=== PATIENT | female | born 1990 | race Hispanic/Latino ===

== ENCOUNTER 2017-12-18 15:05 | Emergency (ER) | payer BC ==
[2017-12-18 15:13] VITALS: RESP 18; TEMP 97.7; O2SAT 99
[2017-12-18] MEDS ORDERED: Sodium Chloride 0.9% 1,000 ML IV STA (15:41)
[2017-12-18 16:07] LABS: BASO % 0.6 % (0.0-2.0); EOS % 0.4 % (0.0-4.0); HEMOGLOBIN 10.7 g/dL (12.0-16.0); LYMPH # 1.4 K/uL (1.0-4.3); LYMPH % 27.9 % (20.0-40.0); MEAN CELL VOLUME 78.1 fl (81.0-99.0); MEAN CORPUSCULAR HEMOGLOBIN 24.4 pg (27.0-31.0); MEAN CORPUSCULAR HGB CONC 31.3 g/dL (33.0-37.0); MEAN PLATELET VOLUME 9.8 fl (7.2-11.7); MONO # 0.3 K/uL (0.0-0.8); MONO % 6.2 % (0.0-10.0); NEUT # 3.3 K/uL (1.8-7.0); NEUT % 64.9 % (50.0-75.0); NRBC % 0.2 % (0.0-0.0); RBC 4.38 Mil/uL (3.80-5.20); RED CELL DISTRIBUTION WIDTH 17.9 % (11.5-14.5); WHITE BLOOD COUNT 5.1 K/uL (4.8-10.8)
--- NOTE | 2017-12-18 16:07 | ED PDOC ---
HPI: General Adult Time Seen by Provider: 12/18/17 15:29 Chief Complaint (Nursing): Female Genitourinary History Per: Patient Additional Complaint(s): Pt. states yesterday morning she had intercourse with a partner she's had intercourse with her before and approximately 4 hours later she developed heavy vaginal bleeding. States she's been using 1 pad or tampon (fully soaked) every hour since yesterday and that bleeding has decreased today but is still present. Also states that she did take Plan B on Friday. LMP 12/04/2017. Currently without any pain. Furthermore pt. does have a hx of anemia for which she use to take iron but had no previous transfusions. Denies pelvic pain, abdominal pain, dysuria, hematuria, vaginal pain, dysuria, hematuria, fever. Past Medical History Reviewed: Historical Data, Nursing Documentation, Vital Signs Vital Signs: Last Vital Signs Temp 97.7 F 12/18/17 15:10 Pulse 103 H 12/18/17 15:10 Resp 18 12/18/17 15:10 BP 125/82 12/18/17 15:10 Pulse Ox 99 12/18/17 16:15 - Surgical History Surgical History: Appendectomy - Family History Family History: States: No Known Family Hx - Home Medications Home Medications: Ambulatory Orders Medication Instructions Recorded No Known Home Med 12/18/17 - Allergies Allergies/Adverse Reactions: Allergies Allergy/AdvReac Type Severity Reaction Status Date / Time No Known Allergies Allergy Verified 12/18/17 15:29 Review of Systems ROS Statement: Except As Marked, All Systems Reviewed And Found Negative Genitourinary Female: Positive for: Vaginal Bleeding. Negative for: Pelvic Pain Physical Exam - Physical Exam Appears: Positive for: Well, Non-toxic, No Acute Distress Skin: Positive for: Normal Color, Warm. Negative for: Rash Eye Exam: Positive for: Normal appearance. Negative for: Scleral icterus (b/l) Neck: Positive for: Normal, Painless ROM Cardiovascular/Chest: Positive for: Tachycardia Respiratory: Positive for: CNT, Normal Breath Sounds Gastrointestinal/Abdominal: Positive for: Normal Exam, Bowel Sounds, Soft. Negative for: Tenderness Pelvic Exam: Positive for: External Exam Normal, No Cerv. Motion Tender, No Masses, Active Bleeding (from cervical os), Other (no lacerations or ecchymosis) Back: Positive for: Normal Inspection Neurologic/Psych: Positive for: Alert, Oriented - Laboratory Results Result Diagrams: 12/18/17 15:59 12/18/17 15:59 - ECG O2 Sat by Pulse Oximetry: 99 - Progress ED Course And Treament: Labs ordered. TVUS ordered. IV NS bolus x 1 ordered. Case d/w Dr. Michaels and Dr. Dugan who both agree with plan. As per Dr. Dugan bleeding is likely due to Plan B. 1901 TVUS: 2.0 cm right ovarian follicle/cyst. Pt. informed of results and instructed to return to ED immediately if weakness, dizziness develop or if bleeding persists or worsens. Disposition - Clinical Impression Clinical Impression: Abnormal uterine bleeding (AUB) - Patient ED Disposition Is Patient to be Admitted: No - Disposition Referrals: [facility] [Outside] Barron Dugan MD [Staff Provider] - [facility] [Outside] Disposition: Routine/Home Disposition Time: 19:04 Condition: STABLE Instructions: Absent or Irregular Periods Forms: Yair Damon (Tajik)
[2017-12-18 16:15] LABS: PARTIAL THROMBOPLASTIN TIME 29.7 Seconds (25.6-37.1); PROTHROMBIN TIME 11.6 Seconds (9.8-13.1); SQUAMOUS EPITHIAL 1 /hpf (0-5); URINE BACTERIA FEW (<OCC); URINE BILIRUBIN NEGATIVE (NEGATIVE); URINE BLOOD LARGE (NEGATIVE); URINE CLARITY SLIGHTY-CLOUDY (Clear); URINE COLOR YELLOW (YELLOW); URINE GLUCOSE (UA) NEG (Normal); URINE LEUKOCYTE ESTERASE NEG Leu/uL (Negative); URINE PROTEIN NEGATIVE (NEGATIVE); URINE UROBILINOGEN 0.2-1.0 mg/dL (0.2-1.0)
[2017-12-18 16:24] LABS: ALB/GLOB RATIO 1.5 (1.0-2.1); ALBUMIN 4.1 g/dL (3.5-5.0); ALT/SGPT 30 U/L (9-52); AST/SGOT 25 U/L (14-36); BLOOD UREA NITROGEN 8 mg/dl (7-17); CALCIUM 9.3 mg/dL (8.4-10.2); GFR AFRICAN-AMERICAN > 60; GFR NON-AFRICAN AMERICAN > 60
--- NOTE | 2017-12-18 18:15 | US ---
HISTORY: vaginal bleeding COMPARISON: None available. TECHNIQUE: Additional pelvic ultrasound. FINDINGS: Examination limited by bowel gas. UTERUS: Measures 7.2 x 3.0 x 4.5 cm. Anteverted. ENDOMETRIUM: Measures 3 mm in diameter. CERVIX: No cervical abnormality identified. RIGHT OVARY: Measures 4.5 x 2.0 x 3.2 cm. Blood flow is demonstrated. 2.0 x 1.7 x 1.7 cm right ovarian follicle/cyst. LEFT OVARY: Measures 1.6 x 1.5 x 1.6 cm. Blood flow is demonstrated. FREE FLUID: No significant free fluid noted. OTHER FINDINGS: None. IMPRESSION: 2.0 cm right ovarian follicle/cyst.
[2017-12-18 19:30] VITALS: BP 109/66; PULSE 81
== END 2017-12-18 19:30 | disposition home or self-care (01) ==
LOC: H.ER 15:05
DX: N93.9 Abnormal uterine and vaginal bleeding, unspecified (principal); R10.2 Pelvic and perineal pain; D64.9 Anemia, unspecified
CPT/HCPCS: 76830; 80053; 81003; 81025; 85025; 85610; 85730; 86850; 86900; 96360; 99284; J7040